=== PATIENT | female | born 1960 | race Caucasian/White ===

== ENCOUNTER → 2021-11-19 17:20 | Outpatient (CLI) | payer OTHER, SELFPAY ==
--- NOTE | ~2021-11-19 | XR_ITS ---
EXAMINATION: XR chest 2V EXAM DATE: 11/19/2021 17:43 INDICATION: J06.9 URI Cough X10 Days , Hx abscess In Lung 2003 . TECHNIQUE: Frontal and lateral projections of the chest obtained and reviewed. There is no prior sharona dy for comparison. FINDINGS: Linear right upper lobe opacity consistent with scarring. The lungs are otherwise clear. There are no pleural effusions. The cardiomediastinal silhouette is within normal limits. There is no pneumothorax suspected. The bones and soft tissues are unremarkable. IMPRESSION: No acute cardiopulmonary findings. Reviewed, dictated and finalized at location A. [employer]
== END ==
PROVIDERS: PCP Nurse Practitioner Family; Visit Provider Nurse Practitioner Family
DX: J06.9 Acute upper respiratory infection, unspecified (principal)
CPT/HCPCS: 71046

== ENCOUNTER 2022-02-09 12:16 | Emergency (ER) | payer OTHER, SELFPAY ==
[2022-02-09 12:21] VITALS: BP 127/59; PULSE 84; RESP 16; TEMP 36.4; O2SAT 97
--- NOTE | 2022-02-09 12:33 | ED.WOUNDLAC ---
HPI - Wound/Laceration General Chief Complaint: Wound/Laceration Stated Complaint: Laceration to Forehead Time Seen by Provider: 02/09/22 12:34 Source: patient Mode of arrival: ambulatory Limitations: no limitations History of Present Illness HPI narrative: 61-year-old female presented complaint of laceration to left forehead, injury today. She states she tripped over the curb and struck her forehead on the doorway of the hairdresser. She denies loss of consciousness, currently denies neck pain, headache, dizziness, nausea. She has not taken anything for pain. Tetanus was 06/2012 per patient. Related Data Home Medications Medication Instructions Recorded Confirmed albuterol 90 mcg INHALATION Q4H PRN 02/09/22 02/09/22 cetirizine 10 mg PO DAILY 02/09/22 02/09/22 fluticasone furoate 50 mcg INHALATION DAILY 02/09/22 02/09/22 hydrochlorothiazide 25 mg PO DAILY 02/09/22 02/09/22 lisinopril 10 mg PO DAILY 02/09/22 02/09/22 melatonin 10 mg PO HS 02/09/22 02/09/22 meloxicam 15 mg PO DAILY 02/09/22 02/09/22 ropinirole 4 mg PO TID 02/09/22 02/09/22 simvastatin 40 mg PO DAILY 02/09/22 02/09/22 Allergies Allergy/AdvReac Type Severity Reaction Status Date / Time Penicillins Allergy Mild HIVES Verified 02/09/22 12:31 Review of Systems Review of Systems: CONSTITUTIONAL: Denies body aches, fever, chills, or sweats. EYES: Denies visual changes, redness, or discharge. ENT: Denies rhinorrhea, congestion, sore throat, or otalgia. CARDIOVASCULAR: Denies chest pain, palpitations, or edema. RESPIRATORY: Denies cough or dyspnea. GASTROINTESTINAL: Denies abdominal pain, nausea, vomiting, or diarrhea. GENITOURINARY: Denies dysuria or hematuria. SKIN: Laceration forehead MUSCULOSKELETAL: Denies back pain, joint pain, or myalgia. NEUROLOGIC: Denies headache, numbness, tingling, or weakness. PSYCH: Denies depression or anxiety. PMFSH Comments At time of signature, I have reviewed and agree with nursing past medical, surgical, social and family history unless otherwise noted. Please see nursing chart for further information. There is no relevant family history pertinent to the presenting complaint Exam Narrative: GENERAL: Well-appearing, well-nourished, and in no acute distress. HEAD: Normocephalic, atraumatic. EYES: PERRLA, conjunctivae clear, and EOMI. ENT: Mucous membranes moist. CHEST: Clear to auscultation. No respiratory distress. HEART: Regular rate and rhythm. SKIN: Warm, dry. approx 1.5 cm linear laceration to left forehead with surrounding swelling; edges approximate, bleeding controlled NEURO: Alert and oriented x3. PSYCH: Normal mood and affect Course Course Emergency Course: Patient is aware of diagnosis, understands and agrees to treatment plan. Anticipatory guidance given. Patient agrees to follow-up as directed and is aware of reasons to seek care at the emergency department. Portions of this record may have been created with voice recognition software Level of Care: Express Care Visit Vital Signs Vital signs: Vital Signs Temperature 97.5 F L 02/09/22 12:21 Pulse Rate 84 02/09/22 12:21 Respiratory Rate 16 02/09/22 12:21 Blood Pressure 127/59 L 02/09/22 12:21 Pulse Oximetry 97 02/09/22 12:21 Temperature 97.5 F L 02/09/22 12:21 Pulse Rate 84 02/09/22 12:21 Respiratory Rate 16 02/09/22 12:21 Blood Pressure 127/59 L 02/09/22 12:21 Pulse Oximetry 97 02/09/22 12:21 Reviewed Procedures Laceration Laceration 1: Date: 02/09/22 Time: 12:50 Site: face (forehead) Side (If applicable): left Size (cm): 1.5 Description: linear and clean Depth: simple, single layer Pre-repair: irrigated ====== Skin Level ====== Skin layer closed with: dermabond and steri strips ====== Subcutaneous Layer ====== ====== Muscle Layer ====== ====== Tendon Layer ====== MDM - Wound/Laceration MDM Narrative Medical dec
== END 2022-02-09 13:00 | disposition home or self-care (01) ==
PROVIDERS: Emergency Provider Nurse Practitioner Family; PCP Nurse Practitioner Family
DX: S01.81XA Laceration without foreign body of other part of head, initial encounter (principal); W18.09XA Striking against other object with subsequent fall, initial encounter
CPT/HCPCS: 12011; 99212; G0463

== ENCOUNTER 2024-04-14 13:23 | Emergency (ER) | payer OTHER, SELFPAY ==
[2024-04-14 13:28] VITALS: BP 114/54; PULSE 92; RESP 16; TEMP 36.9; O2SAT 99
--- NOTE | 2024-04-14 22:20 | ED.GENADULT ---
HPI - General Adult General Chief complaint: Extremity Injury, Upper Stated complaint: Left Shoulder Pain Time Seen by Provider: 04/14/24 14:17 Source: patient, RN notes reviewed and old records reviewed Mode of arrival: ambulatory Limitations: no limitations History of Present Illness HPI narrative: 63-year-old female to Express Care for complaint of left shoulder pain for 2 to 3 weeks. 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 Patient notices increased pain with movement however patient denies limited range of motion. Patient reports kidney history states she cannot take NSAIDs for treatment. Patient states that Tylenol, heat and ice at home have not been adequate at addressing pain. Pt states that she called her primary care provider and was advised to be seen here. Related Data Home Medications Medication Instructions Recorded Confirmed albuterol 90 mcg/actuation aerosol 90 mcg inhalation Q4H PRN Dyspnea 02/09/22 02/09/22 inhaler cetirizine 10 mg tablet 10 mg PO DAILY 02/09/22 02/09/22 fluticasone furoate 50 50 mcg inhalation DAILY 02/09/22 02/09/22 mcg/actuation blister powder for inhalation hydrochlorothiazide 25 mg tablet 25 mg PO DAILY 02/09/22 02/09/22 lisinopril 10 mg tablet 10 mg PO DAILY 02/09/22 02/09/22 melatonin 10 mg tablet 10 mg PO HS 02/09/22 02/09/22 meloxicam 15 mg tablet 15 mg PO DAILY 02/09/22 02/09/22 ropinirole 4 mg tablet 4 mg PO TID 02/09/22 02/09/22 simvastatin 40 mg tablet 40 mg PO DAILY 02/09/22 02/09/22 Daily Multivitamin 04/14/24 calcium-vitamin D2-iron tablet tablet PO 04/14/24 cranberry 04/14/24 ferrous sulfate 325 mg (65 mg mg 04/14/24 iron) tablet (FeroSul) montelukast 10 mg tablet mg 04/14/24 Allergies Allergy/AdvReac Type Severity Reaction Status Date / Time Penicillins Allergy Mild HIVES Verified 04/14/24 14:32 Review of Systems Review of Systems: All systems reviewed & are unremarkable except as noted in HPI and below Constitutional: Constitutional: Reports no additional constitutional complaints Eyes: Eyes: Reports no additional eye complaints ENT: Reports system reviewed and no additional complaints, except as documented Cardiovascular: Cardiovascular: Reports no additional cardiovascular complaints, Denies chest pain and Denies dyspnea Respiratory: Respiratory: Reports no additional respiratory complaints, Denies cough and Denies dyspnea Musculoskeletal: Musculoskeletal: Reports as per HPI, Reports arthralgias ( left shoulder), Denies limited range of motion, Denies numbness and Denies tingling Neurologic: Reports system reviewed and no additional complaints, except as documented Psychiatric: Psychiatric: Reports no additional psychiatric complaints PMFSH Comments At the time of my signature, I reviewed and agree with the nursing past medical, surgical, social, and family history. There is no relevant family history pertinent to the patient complaint. Exam Const: General: cooperative, healthy appearing, no acute distress, alert, uncomfortable and well nourished Nutritional Appearance: well nourished Orientation/consciousness: patient oriented x3 Limitations: no limitations HENMT: Head: normal to inspection Ears: external ears normal Face/Nose/Sinus: Normal external nose present, Normal nares present, normal facial exam, No erythema and No edema Face and sinus: normal facial exam, no erythema and no edema Mouth: Yes Normal oral and palatal mucosa present Eyes: General: appearance normal, both eyes and all related structures Neck: Neck: normal visual inspection, full ROM and no meningeal signs Lymphatic: no lymphadenopathy noted and no lymphedema noted Chest: Chest palpation & inspection: normal inspection of the chest Resp: Effort & Inspection: normal respiratory effort and able to speak in complete sentences Auscultation: clear to auscultation bilaterally Cardio: Jugular venous
== END 2024-04-14 14:54 | disposition home or self-care (01) ==
PROVIDERS: Emergency Provider Nurse Practitioner Family; PCP Nurse Practitioner Family
DX: M25.512 Pain in left shoulder (principal); G25.81 Restless legs syndrome; E78.00 Pure hypercholesterolemia, unspecified; I10 Essential (primary) hypertension; M19.90 Unspecified osteoarthritis, unspecified site
CPT/HCPCS: 99212; G0463